=== PATIENT | female | born 1995 | race African-American/Black ===

== ENCOUNTER 2017-10-11 09:44 | Emergency (ER) | payer MEDICAID ==
[~2017-10-11] VITALS: Ht 165.1 cm; Wt 60.0 kg
[~2017-10-11 09:44] MED LIST: ARIP2TAB3 PO
[2017-10-11 09:45] VITALS: BP 105/57
[2017-10-11] MEDS ORDERED: TRAZ-129 PO (09:49)
[2017-10-11 11:35] LABS: BASOPHILS % 0.4 % (0.0-2.0); EOSINOPHILS % 0.3 % (0.0-5.0); HEMATOCRIT. 40.2 % (36.0-48.0); HEMOGLOBIN. 13.6 g/dL (12.0-16.0); LYMPHOCYTES % 15.3 % (20.0-50.0); MEAN CORPUSCULAR VOLUME 94.8 fL (81.0-99.0); MEAN PLATELET VOLUME 9.6 fl (7.4-10.4); MONOCYTES % 9.4 % (2.0-8.0); NEUTROPHILS % 74.6 % (40.0-76.0); PLATELET 232 x1000/uL (130-400); RED BLOOD CELL COUNT 4.24 mill/uL (4.2-5.4); RED CELL DISTRIBUTION WIDTH 13.5 % (11.6-14.6)
[2017-10-11 11:42] LABS: CHLORIDE 104 mEq/L (98-107)
[2017-10-11 11:48] LABS: ETHANOL BLOOD < 10 mg/dL
[2017-10-11 11:58] LABS: HCG SCREEN NEGATIVE
== END 2017-10-11 14:22 | disposition home or self-care (01) ==
LOC: ER 09:55
DX: R07.89 Other chest pain (principal); F31.9 Bipolar disorder, unspecified; F20.9 Schizophrenia, unspecified
CPT/HCPCS: 36415; 71045; 80053; 80307; 80329; 84443; 84484; 84703; 85025; 93005; 99285; G0482

== ENCOUNTER 2018-05-17 02:59 | Emergency (ER) | payer MEDICAID ==
[~2018-05-17] VITALS: Ht 157.5 cm; Wt 61.5 kg
[~2018-05-17 02:59] MED LIST changes: +TRAZ-212 PO
[2018-05-17] MEDS ORDERED: ACETAMINOPHEN 325MG TABLET PO ONE (05:30)
[2018-05-17 13:34] VITALS: BP 111/61
== END 2018-05-17 13:35 | disposition home or self-care (01) ==
LOC: ER 02:59
DX: Z59.0 Homelessness (principal); N30.00 Acute cystitis without hematuria; R03.0 Elevated blood-pressure reading, without diagnosis of hypertension
CPT/HCPCS: 81025; 99283

== ENCOUNTER 2018-06-20 05:22 | Emergency (ER) | payer MEDICAID ==
[~2018-06-20] VITALS: Ht 162.6 cm; Wt 59.0 kg
[2018-06-20 05:44] VITALS: BP 117/68
[2018-06-20 06:25] LABS: BASOPHILS % 0.7 % (0.0-2.0); EOSINOPHILS % 1.6 % (0.0-5.0); HEMATOCRIT. 39.5 % (36.0-48.0); HEMOGLOBIN. 13.2 g/dL (12.0-16.0); LYMPHOCYTES % 20.4 % (20.0-50.0); MEAN CORPUSCULAR HEMOGLOBIN 32.1 pg (28.0-32.0); MEAN CORPUSCULAR VOLUME 95.7 fL (81.0-99.0); MEAN PLATELET VOLUME 9.1 fl (7.4-10.4); MONOCYTES % 8.9 % (2.0-8.0); NEUTROPHILS % 68.4 % (40.0-76.0); PLATELET 254 x1000/uL (130-400); RED BLOOD CELL COUNT 4.12 mill/uL (4.2-5.4); RED CELL DISTRIBUTION WIDTH 12.7 % (11.6-14.6)
[2018-06-20 06:28] LABS: CHLORIDE 107 mEq/L (98-107)
[2018-06-20] MEDS ORDERED: SODIUM CHLORIDE 0.9% 1,000 ML IV ONE (06:29)
[2018-06-20] MEDS ORDERED: FAMOTIDINE 20MG/2ML VIAL IV SCH (06:30)
[2018-06-20 06:32] LABS: ETHANOL BLOOD < 10 mg/dL
[2018-06-20 06:39] LABS: HCG SCREEN NEGATIVE
[2018-06-20 06:46] LABS: CLARITY URINE CLEAR (CLEAR); COLOR URINE YELLOW (YELLOW); KETONES URINE TRACE (NEGATIVE); LEUKOCYTE ESTERASE URINE NEGATIVE (NEGATIVE); NITRITE URINE NEGATIVE (NEGATIVE); OCCULT BLOOD URINE 2+ (NEGATIVE); PROTEIN URINE NEGATIVE (NEGATIVE); SPECIFIC GRAVITY URINE 1.029 (1.005-1.030); UROBILINOGEN URINE 0.2 E.U./dL (0.2-1.0)
[2018-06-20 07:08] LABS: *AMPHETAMINES SCREEN URINE NEGATIVE (NEGATIVE); *BARBITURATES SCREEN URINE NEGATIVE (NEGATIVE); *BENZODIAZEPINES SCREEN URINE NEGATIVE (NEGATIVE); *COCAINE SCREEN URINE NEGATIVE (NEGATIVE)
[2018-06-20 07:09] LABS: METHADONE URINE SCREEN NEGATIVE (NEGATIVE); OPIATES URINE SCREEN NEGATIVE (NEGATIVE); PHENCYCLIDINE URINE SCREEN NEGATIVE (NEGATIVE)
[2018-06-20 07:34] LABS: CANNABINOID URINE SCREEN PRESUMTIVE POSITIVE (NEGATIVE)
== END 2018-06-20 07:03 | disposition left against medical advice (07) ==
LOC: ER 05:22
DX: R10.13 Epigastric pain (principal); F20.9 Schizophrenia, unspecified; F31.9 Bipolar disorder, unspecified
CPT/HCPCS: 36415; 80053; 80305; 80307; 80320; 80329; 81003; 81025; 83690; 84703; 85025; 85610; 99283; J7030; G0480

== ENCOUNTER 2018-09-13 07:22 | Emergency (ER) | payer MEDICAID ==
[~2018-09-13] VITALS: Ht 165.1 cm; Wt 63.0 kg
[~2018-09-13 07:22] MED LIST changes: -TRAZ-212 PO; +TRAZ-251 PO
[2018-09-13 09:25] LABS: BASOPHILS % 0.2 % (0.0-2.0); EOSINOPHILS % 0.5 % (0.0-5.0); HEMATOCRIT. 41.1 % (36.0-48.0); LYMPHOCYTES % 14.8 % (20.0-50.0); MEAN CORPUSCULAR HEMOGLOBIN 31.9 pg (28.0-32.0); MEAN CORPUSCULAR VOLUME 93.7 fL (81.0-99.0); MEAN PLATELET VOLUME 8.9 fl (7.4-10.4); MONOCYTES % 5.9 % (2.0-8.0); NEUTROPHILS % 78.6 % (40.0-76.0); PLATELET 258 x1000/uL (130-400); RED BLOOD CELL COUNT 4.39 mill/uL (4.2-5.4); RED CELL DISTRIBUTION WIDTH 12.8 % (11.6-14.6)
[2018-09-13 09:29] LABS: CHLORIDE 107 mEq/L (98-107)
[2018-09-13 09:32] LABS: ETHANOL BLOOD < 10 mg/dL
[2018-09-13 09:36] LABS: HCG SCREEN NEGATIVE
[2018-09-13 10:59] LABS: *AMPHETAMINES SCREEN URINE NEGATIVE (NEGATIVE)
[2018-09-13 11:00] LABS: *BARBITURATES SCREEN URINE NEGATIVE (NEGATIVE); *BENZODIAZEPINES SCREEN URINE NEGATIVE (NEGATIVE); *COCAINE SCREEN URINE NEGATIVE (NEGATIVE); METHADONE URINE SCREEN NEGATIVE (NEGATIVE); OPIATES URINE SCREEN NEGATIVE (NEGATIVE); PHENCYCLIDINE URINE SCREEN NEGATIVE (NEGATIVE)
[2018-09-13 11:12] LABS: CANNABINOID URINE SCREEN PRESUMTIVE POSITIVE (NEGATIVE)
[2018-09-14 15:01] VITALS: BP 125/69
== END 2018-09-14 15:03 | disposition home or self-care (01) ==
LOC: ER 07:29
DX: F31.9 Bipolar disorder, unspecified (principal); R07.9 Chest pain, unspecified; R06.02 Shortness of breath; F20.9 Schizophrenia, unspecified; F17.200 Nicotine dependence, unspecified, uncomplicated; Z79.899 Other long term (current) drug therapy
CPT/HCPCS: 36415; 80048; 80305; 80307; 80320; 80329; 81025; 84703; 93005; 99284; G0480

== ENCOUNTER 2018-10-01 13:40 | Emergency (ER) | payer MEDICAID ==
[~2018-10-01] VITALS: Ht 160 cm; Wt 64.0 kg
[2018-10-01 15:35] LABS: BASOPHILS % 0.5 % (0.0-2.0); EOSINOPHILS % 0.5 % (0.0-5.0); HEMATOCRIT. 41.9 % (36.0-48.0); HEMOGLOBIN. 14.3 g/dL (12.0-16.0); MEAN CORPUSCULAR HEMOGLOBIN 31.7 pg (28.0-32.0); MEAN PLATELET VOLUME 8.8 fl (7.4-10.4); MONOCYTES % 9.9 % (2.0-8.0); NEUTROPHILS % 73.1 % (40.0-76.0); PLATELET 280 x1000/uL (130-400); RED BLOOD CELL COUNT 4.51 mill/uL (4.2-5.4)
[2018-10-01 15:40] LABS: CHLORIDE 107 mEq/L (98-107)
[2018-10-01 15:43] LABS: HCG SCREEN NEGATIVE
[2018-10-01 15:44] LABS: ETHANOL BLOOD < 10 mg/dL
[2018-10-01 16:21] LABS: CLARITY URINE CLOUDY (CLEAR); COLOR URINE DARK YELLOW (YELLOW); KETONES URINE 1+ (NEGATIVE); LEUKOCYTE ESTERASE URINE TRACE (NEGATIVE); NITRITE URINE NEGATIVE (NEGATIVE); OCCULT BLOOD URINE NEGATIVE (NEGATIVE); PH URINE 5.5 (4.5-8.0); PROTEIN URINE 2+ (NEGATIVE); SPECIFIC GRAVITY URINE 1.029 (1.005-1.030)
[2018-10-01 16:40] LABS: *BARBITURATES SCREEN URINE NEGATIVE (NEGATIVE); *BENZODIAZEPINES SCREEN URINE NEGATIVE (NEGATIVE); *COCAINE SCREEN URINE NEGATIVE (NEGATIVE); METHADONE URINE SCREEN NEGATIVE (NEGATIVE)
[2018-10-01 16:41] LABS: OPIATES URINE SCREEN NEGATIVE (NEGATIVE)
[2018-10-01 16:43] LABS: *AMPHETAMINES SCREEN URINE PRESUMTIVE POSITIVE (NEGATIVE); CANNABINOID URINE SCREEN PRESUMTIVE POSITIVE (NEGATIVE); PHENCYCLIDINE URINE SCREEN PRESUMTIVE POSITIVE (NEGATIVE)
[2018-10-02 07:30] VITALS: BP 114/65
== END 2018-10-02 08:43 | disposition home or self-care (01) ==
LOC: ER 13:40
DX: R45.851 Suicidal ideations (principal); F15.188 Other stimulant abuse with other stimulant-induced disorder; F11.188 Opioid abuse with other opioid-induced disorder; F16.188 Hallucinogen abuse with other hallucinogen-induced disorder; F12.188 Cannabis abuse with other cannabis-induced disorder; F20.9 Schizophrenia, unspecified
CPT/HCPCS: 36415; 71045; 80305; 80320; 84703; 93005; 99285; G0480

== ENCOUNTER 2019-01-18 04:00 | Emergency (ER) | payer MEDICAID ==
[~2019-01-18] VITALS: Ht 167.6 cm; Wt 54.0 kg
[2019-01-18 05:00] VITALS: BP 125/73
== END 2019-01-18 05:00 | disposition home or self-care (01) ==
LOC: ER 04:00
DX: F15.129 Other stimulant abuse with intoxication, unspecified (principal); F20.9 Schizophrenia, unspecified; F31.9 Bipolar disorder, unspecified; Z79.899 Other long term (current) drug therapy
CPT/HCPCS: 99283